=== PATIENT | male | born 1970 | race Two or more races ===

== ENCOUNTER 2018-10-07 01:19 | Emergency (ER) | payer BC, OTHER ==
[~2018-10-07] VITALS: Ht 172.7 cm; Wt 77.2 kg
[2018-10-07] MEDS ORDERED: normal saline 1000ML IV soln IVB ONE (01:30)
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
[2018-10-07 02:13] LABS: BASOPHILS # (AUTO) 0.1 X10'3 (0-0.2); BASOPHILS % (AUTO) 0.6 % (0-1); EOSINOPHILS # (AUTO) 0.4 X10'3 (0-0.9); EOSINOPHILS % (AUTO) 1.9 % (0-6); HEMATOCRIT 49.2 % (42.0-52.0); HEMOGLOBIN 16.4 g/dl (14.0-17.9); LYMPHOCYTES # (AUTO) 5.6 X10'3 (1.1-4.8); LYMPHOCYTES % (AUTO) 24.6 % (21-51); MEAN CORPUSCULAR HEMOGLOBIN 30.3 PG (27.0-31.0); MEAN CORPUSCULAR HGB CONC 33.3 % (33.0-36.5); MEAN PLATELET VOLUME 9.5 FL (7.4-10.4); MONOCYTES # (AUTO) 0.9 X10'3 (0-0.9); MONOCYTES % (AUTO) 4.1 % (2-12); NEUTROPHILS # (AUTO) 15.8 X10'3 (1.8-7.7); NEUTROPHILS % (AUTO) 68.8 % (42-75); PLATELET COUNT 451 X10'3 (140-440); RED BLOOD COUNT 5.41 X10'6 (4.70-6.10); RED CELL DISTRIBUTION WIDTH 13.8 % (11.5-14.5); WHITE BLOOD COUNT 22.8 X10'3 (4.5-11.0)
--- NOTE | 2018-10-07 02:14 | NUR ---
Patient room air saturation of 89%. Patient placed on nasal canula at 4L and will titrate down when possible.
[2018-10-07 02:17] LABS: ALANINE AMINOTRANSFERASE 50 U/L (12-78); ALBUMIN 4.3 G/DL (3.4-5.0); ALKALINE PHOSPHATASE 80 IU/L (46-116); ANION GAP 11 (8-16); ASPARTATE AMINO TRANSFERASE 28 U/L (10-37); BILIRUBIN,TOTAL 0.3 MG/DL (0.1-1.0); BLOOD UREA NITROGEN 18 MG/DL (7-18); BUN/CREATININE RATIO 15.3 (5.4-32.0); CALCIUM 8.6 MG/DL (8.5-10.1); CHLORIDE 104 MMOL/L (99-107); CREATININE 1.18 MG/DL (0.60-1.10); GLUCOSE 119 MG/DL (70-104); MAGNESIUM 2.4 MG/DL (1.5-2.4); POTASSIUM 4.5 MMOL/L (3.5-5.1); SODIUM 143 MMOL/L (135-145); TOTAL CARBON DIOXIDE 28.2 MMOL/L (24-32); TOTAL PROTEIN 8.6 G/DL (6.4-8.2); eGFR 66 ML/MIN
[2018-10-07 02:18] LABS: ACETAMINOPHEN < 2.0 UG/ML (10-30)
[2018-10-07 02:31] LABS: ETHANOL 0.357 GM/DL (0.0-0.010)
[2018-10-07] MEDS ORDERED: haloperidol lactate 5mg/ml inj IM ONE (02:35)
--- NOTE | 2018-10-07 02:36 | NUR ---
Attempted to remove patient from behavioral restraints as the patient has been resting quietly. When the attempt was made, the patient became agressive again screaming no and tensing all of his muscles and resisting even the attempt to remove the restraints. I attempted to verbally de-escalate the patient unsuccessfully. I updated Dr. Jimenez on the situation who orders haldol to relax him so the restraints may be removed.
--- NOTE | 2018-10-07 02:40 | NUR ---
Patient's tracked his phone to the ED and was un-aware that he was brought in by ambulance. She is on the way to the ED now. Will hold haldol until she arrives and perhaps she may be able to assist in de-escalation.
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
--- NOTE | 2018-10-07 03:00 | NUR ---
Restraints successfully removed from patient. He is currently sleeping soundly. Doors are closed to reduce noise and curtains are open so that the patient is visible to staff. Haldol will be held as it is currently not necessary.
--- NOTE | 2018-10-07 03:30 | NUR ---
Contact patient's Chiquis at [phone] in the morning for a ride home.
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
--- NOTE | 2018-10-07 04:28 | NUR ---
Patient is sleeping in no distress.
--- NOTE | 2018-10-07 05:30 | NUR ---
Patient continues to sleep in no distress.
[2018-10-07 09:15] VITALS: BP 141/92
== END 2018-10-07 09:34 | disposition home or self-care (01) ==
LOC: ER 01:19
DX: S00.93XA Contusion of unspecified part of head, initial encounter (principal); F10.129 Alcohol abuse with intoxication, unspecified; W18.39XA Other fall on same level, initial encounter; Y93.89 Activity, other specified; Y92.89 Other specified places as the place of occurrence of the external cause; Y99.2 Volunteer activity; Y90.9 Presence of alcohol in blood, level not specified
CPT/HCPCS: 36415; 70450; 72125; 80053; 80320; 80329; 83735; 85025; 99284; J7030